=== PATIENT | female | born 1970 | race Caucasian/White ===

== ENCOUNTER 2017-06-30 00:13 | Observation (INO) | payer OTHER ==
[2017-06-30] VITALS (8 sets, daily range): BP systolic 132–165; BP diastolic 79–93; PULSE 20–111; RESP 16–20; TEMP 98.2–99.2; O2SAT 94–100
[~2017-06-30 00:13] MED LIST: CEPH-460 PO; METO25TA3 PO; OMEP10CA PO; SERT25TA83 PO; [UNRECOGNIZED DRUG - REMARK]; vitamins
[2017-06-30] MEDS ORDERED: SODIUM CHLOR 0.9% 1000 ML INJ 1,000 ML IV SCH (03:22)
[2017-06-30] MEDS ORDERED: SODIUM CHLORIDE 0.9% FLUSH 10 ML FLUSH IV FLUSH PRN (03:30)
[2017-06-30] MEDS ORDERED: NALOXONE HCL 0.4 MG/ML AMP IV PUSH PRN (03:30)
[2017-06-30] MEDS: SODIUM CHLORIDE 0.9% FLUSH 10 ML FLUSH IV FLUSH SCH ×2 (08:23→23:24)
--- NOTE | 2017-06-30 08:48 | HHI.HP ---
HPI Service [facility] Primary Care Physician Unknown Admission Diagnosis Diagnoses: (1) Hyponatremia Diagnosis: Principal (2) Generalized weakness Diagnosis: Principal (3) Elevated liver enzymes Diagnosis: Principal (4) Thrombocytopenia Diagnosis: Principal Chief Complaint: Profound weakness Travel History International Travel<30 Days: No Contact w/Intl Traveler <30 Da: No History of Present Illness 47-year-old female with known history of hypertension, depression who presented to the hospital because of profound weakness. Patient states that 2 weeks ago she got weak and she fell in the kitchen lacerating her lip. She went to the ER at that time and was given antibiotic in which she had allergic reaction to. She was subsequently started on steroids. However when she went home she still has severe weakness in which she pretty much stayed in bed the whole time. Every time she went to get up she felt nauseous. Because she did not get any better her took her to the ER for evaluation. Workup was done and found to have hyponatremia and recommended admission to the hospital for further evaluation and management. Upon further questioning it does appears the patient does have significant p.o. fluid intake with at least 6 bottles of water daily. 2 glasses of crystallite drinks. As well as she does drink alcohol on a regular basis she states that she drinks wine every other day and then on the weekend she does have several alcoholic beverages. Other evaluation in the emergency department did indicate elevated liver enzymes in which patient states that her primary doctor has been following her elevated liver enzymes. The last time they were checked for a couple months ago. Patient denies any abdominal pain, nausea, vomiting, headache, diarrhea. Review of Systems Gastrointestinal: COMPLAINS OF: Nausea Neurologic: COMPLAINS OF: Abnormal gait, Poor Balance Except as stated in HPI: all other systems reviewed are Neg Past Family Social History Past Medical History Hypertension Depression Past Surgical History Gastric bypass surgery Right knee surgery Tonsillectomy Reported Medications Reported Meds & Active Scripts Active Keflex (Cephalexin) 500 Mg Cap 500 Mg PO Q8H Reported [vitamins] [limprozol for BP] Omeprazole 10 Mg Cap 0 PO DAILY Sertraline (Sertraline HCl) 25 Mg Tab 0 PO DAILY Metoprolol Tartrate 25 Mg Tab 0 PO DAILY Allergies: Coded Allergies: amoxicillin (Verified Allergy, Severe, hives, 06/29/17) Family History We did a significant for mother at age 67 from heart disease. Patient states that breast cancer runs in her father's side of the family. Social History Patient admits to drinking and couple glasses of wine every other day and then on weekends drinking several alcoholic beverages. She denies any tobacco or illicit drug use Physical Exam Vital Signs Vital Signs Date Time Temp Pulse Resp B/P (MAP) Pulse Ox O2 Delivery O2 Flow Rate FiO2 06/30/17 04:05 98.4 84 16 138/83 (101) 96 06/30/17 03:25 83 Physical Exam GENERAL: Well-developed, well-nourished, in no acute distress. alert and orientated HEENT: Head is normocephalic without any lesions or masses noted. Facial features are symmetric. Eyes: Pupils equal round reactive to light. Extraocular muscles are intact. Conjunctivae were clear. Oropharyngeal: Pharynx without any erythema edema. Tongue is midline without deviation. Buccal mucosa is moist without any masses or lesions NECK: Supple without any masses. Trachea midline no deviation. No JVD, no bruits are appreciated CARDIAC: Regular rhythm, regular rate. S1/S2 are heard. No murmurs gallops or rubs. LUNGS: Clear to auscultation bilaterally. No wheeze, rhonchi or rales. No use of accessory muscles on inspiration or expiration. ABDOMEN: Soft, nontender. Nondistended. Bowel sounds heard in all 4 quadrants. No organomegaly or masses. Negative rebound, negative guarding EXTREMITIES: No edema, pulses are equal bilaterally. No cyanosis or clubbing NEUROLOGY: Mood and affect appear appropriate. Cranial nerves II through XII grossly intact. Muscle strength 5/5 in upper and lower extremities bilaterally. Deep tendon reflexes are 2+ in upper and lower extremities bilaterally. 1+ extremity tremors Laboratory Laboratory Tests Test 06/30/17 07:07 Sodium Level 122 Result Diagram: 06/30/17 0707 Caprini VTE Risk Assessment Caprini VTE Risk Assessment: No/Low Risk (score <= 1) Caprini Risk Assessment Model Point Value = 1 Point Value = 2 Point Value = 3 Point Value = 5 Age 41-60 Minor surgery BMI > 25 kg/m2 Swollen legs Varicose veins or History of unexplained or recurrent spontaneous Oral contraceptives or hormone replacement Sepsis (< 1 month) Serious lung disease, including pneumonia (< 1 month) Abnormal pulmonary function Acute myocardial infarction Congestive heart failure (< 1 month) History of inflammatory bowel disease Medical patient at bed rest Age 61-74 Arthroscopic surgery Major open surgery (> 45 min) Laparoscopic surgery (> 45 min) Malignancy Confined to bed (> 72 hours) Immobilizing plaster cast Central venous access Age >= 75 History of VTE Family history of VTE Factor V Leiden Prothrombin [id number] Lupus anticoagulant Anticardiolipin antibodies Elevated serum homocysteine Heparin-induced thrombocytopenia Other congenital or acquired thrombophilia Stroke (< 1 month) Elective arthroplasty Hip, pelvis, or leg fracture Acute spinal cord injury (< 1 month) Prophylaxis Regimen Total Risk Factor Score Risk Level Prophylaxis Regimen 0-1 Low Early ambulation 2 Moderate Order ONE of the following: *Sequential Compression Device (SCD) *Heparin 5000 units SQ BID 3-4 Higher Order ONE of the following medications: *Heparin 5000 units SQ TID *Enoxaparin/Lovenox 40 mg SQ daily (WT < 150 kg, CrCl > 30 mL/min) *Enoxaparin/Lovenox 30 mg SQ daily (WT < 150 kg, CrCl > 10-29 mL/min) *Enoxaparin/Lovenox 30 mg SQ BID (WT < 150 kg, CrCl > 30 mL/min) AND/OR *Sequential Compression Device (SCD) 5 or more Highest Order ONE of the following medications: *Heparin 5000 units SQ TID (Preferred with Epidurals) *Enoxaparin/Lovenox 40 mg SQ daily (WT < 150 kg, CrCl > 30 mL/min) *Enoxaparin/Lovenox 30 mg SQ daily (WT < 150 kg, CrCl > 10-29 mL/min) *Enoxaparin/Lovenox 30 mg SQ BID (WT < 150 kg, CrCl > 30 mL/min) AND *Sequential Compression Device (SCD) Assessment and Plan Assessment and Plan Hyponatremia Could be secondary to primary polydipsia, alcohol use Will obtain osmolality studies, urine sodium for further evaluation Obtain cortisol level and TSH CT of the brain does not indicate any acute abnormality or mass Recent chest x-ray does not indicate any mass Continue fluid replacement at this time Start fluid restriction 1500 mL daily Profound weakness Likely secondary to above Consult physical therapy for evaluation Elevated liver enzymes Patient states that she is being followed in outpatient setting for the elevated liver enzymes Will follow-up labs tomorrow Thrombocytopenia Unknown etiology, however in light of patient's elevated liver enzymes, alcohol use. Possible secondary to alcohol liver disease Monitor CBC Alcohol use Patient does have other findings indicative of chronic alcohol use with objective findings, physical findings of tremors, anxiety Ativan as needed for seizures Start thiamine and folic acid Xanax as needed for anxiety Abnormal urinalysis There is mildly elevated WBCs, however with significant epithelial cells, possible contamination Will hold antibiotics at this time Monitor urine culture DVT prevention, low risk Sequential compression devices Sebastián Fitch Jun 30, 2017 08:48
[2017-06-30] MEDS ORDERED: ALPRAZolam 0.25 MG TAB PO PRN (09:15)
[2017-06-30] MEDS ORDERED: DOCUSATE SODIUM 100 MG CAP PO PRN (09:15)
[2017-06-30] MEDS ORDERED: LORazepam 2 MG/ML VIAL IV PUSH PRN (09:15)
[2017-06-30] MEDS ORDERED: MAGNESIUM HYDROXIDE SUSP 30 ML CUP PO PRN (09:15)
[2017-06-30] MEDS ORDERED: ACETAMINOPHEN 325 MG TAB PO PRN (09:15)
[2017-06-30] MEDS ORDERED: ONDANSETRON HCL 4 MG/2 ML VIAL IV PUSH PRN (09:15)
[2017-06-30] MEDS: THIAMINE HCL 100 MG TAB PO SCH (09:59)
[2017-06-30] MEDS: FOLIC ACID 1 MG TAB PO SCH (09:59)
[2017-06-30 12:27] LABS: SODIUM,RANDOM URINE 31 MEQ/L
[2017-06-30 13:16] LABS: CORTISOL 15.5 MCG/DL
[2017-06-30 13:26] LABS: OSMOLALITY,URINE 188 MOSM/KG (300-1300)
[2017-06-30] MEDS: guaiFENesin/DEXTROMETHORPHAN 200 MG/20 MG/10 ML CUP PO PRN ×2 (17:13→23:24)
[2017-06-30] MEDS ORDERED: TEMAZEPAM 15 MG CAP PO PRN (21:00)
[2017-07-01] VITALS: BP 157/99; PULSE 127; RESP 18; TEMP 98.1; O2SAT 99
[2017-07-01 04:00] VITALS: BP 137/94; PULSE 125; RESP 20; TEMP 98.8; O2SAT 98
[2017-07-01 07:14] LABS: AUTOMATED NEUTROPHIL # 4.3 TH/MM3 (1.8-7.7); BASOPHIL % 0.8 % (0.0-2.0); CHLORIDE 94 MEQ/L (98-107); EOSINOPHIL % 0.8 % (0.0-4.0); HEMATOCRIT 30.1 % (35.0-46.0); HEMOGLOBIN 10.4 GM/DL (11.6-15.3); LYMPH % 13.8 % (9.0-44.0); LYMPHOCYTE # 0.7 TH/MM3 (1.0-4.8); MEAN CORPUSCULAR HEMOGLOBIN 34.3 PG (27.0-34.0); MEAN CORPUSCULAR HGB CONC 34.7 % (32.0-36.0); MEAN PLATELET VOLUME 7.2 FL (7.0-11.0); MONO % 5.6 % (0.0-8.0); MONOCYTE # 0.3 TH/MM3 (0-0.9); PLATELET COUNT 107 TH/MM3 (150-450); RED BLOOD COUNT 3.04 MIL/MM3 (4.00-5.30); RED CELL DISTRIBUTION WIDTH 13.6 % (11.6-17.2); SODIUM (NA) 133 MEQ/L (136-145); WHITE BLOOD COUNT 5.3 TH/MM3 (4.0-11.0)
[2017-07-01 07:17] LABS: CALCIUM 8.5 MG/DL (8.5-10.1)
[2017-07-01 07:18] LABS: ALBUMIN 3.5 GM/DL (3.4-5.0); BICARBONATE 28.7 MEQ/L (21.0-32.0); BLOOD UREA NITROGEN 7 MG/DL (7-18); GLUCOSE,RANDOM 125 MG/DL (74-106)
[2017-07-01 07:21] LABS: ALT (GPT) 76 U/L (10-53); AST (GOT) 206 U/L (15-37); CREATININE 0.44 MG/DL (0.50-1.00); GLOMERULAR FILTRATION RATE 153 ML/MIN (>89)
[2017-07-01 07:22] LABS: TOTAL BILIRUBIN ADULT 1.4 MG/DL (0.2-1.0)
[2017-07-01 07:23] LABS: TOTAL PROTEIN 7.1 GM/DL (6.4-8.2)
[2017-07-01 07:24] LABS: ALKALINE PHOSPHATASE 100 U/L (45-117)
[2017-07-01 08:00] VITALS: BP 164/76; PULSE 108; RESP 18; TEMP 97.9; O2SAT 99
[2017-07-01] MEDS ORDERED: DEXT10SY2 PO (08:18)
--- NOTE | 2017-07-01 08:19 | HHI.DCPOC ---
Discharge Care Plan Diagnosis: (1) Generalized weakness (2) Elevated liver enzymes (3) Hyponatremia Goals to Promote Your Health * To prevent worsening of your condition and complications * To maintain your health at the optimal level Directions to Meet Your Goals Take your medications as prescribed Follow your dietary instruction Follow activity as directed Keep your appointments as scheduled Take your immunizations and boosters as scheduled If your symptoms worsen call your PCP, if no PCP go to Urgent Care Center or Emergency Room Smoking is Dangerous to Your Health. Avoid second hand smoke Call the 24-hour hour crisis hotline for domestic abuse at Sebastián Fitch Jul 01, 2017 08:19
--- NOTE | 2017-07-01 08:25 | HHI.DS ---
Discharge Summary Admission Date Jun 30, 2017 at 03:01 Discharge Date: Jul 01, 2017 Admitting Diagnosis (1) Hyponatremia ICD Code: E87.1 - Hypo-osmolality and hyponatremia Diagnosis: Principal (2) Generalized weakness ICD Code: R53.1 - Weakness Diagnosis: Principal (3) Elevated liver enzymes ICD Code: R74.8 - Abnormal levels of other serum enzymes Diagnosis: Principal (4) Thrombocytopenia ICD Code: D69.6 - Thrombocytopenia, unspecified Diagnosis: Principal Procedures None Brief History - From Admission 47-year-old female with known history of hypertension, depression who presented to the hospital because of profound weakness. Patient states that 2 weeks ago she got weak and she fell in the kitchen lacerating her lip. She went to the ER at that time and was given antibiotic in which she had allergic reaction to. She was subsequently started on steroids. However when she went home she still has severe weakness in which she pretty much stayed in bed the whole time. Every time she went to get up she felt nauseous. Because she did not get any better her took her to the ER for evaluation. Workup was done and found to have hyponatremia and recommended admission to the hospital for further evaluation and management. Upon further questioning it does appears the patient does have significant p.o. fluid intake with at least 6 bottles of water daily. 2 glasses of crystallite drinks. As well as she does drink alcohol on a regular basis she states that she drinks wine every other day and then on the weekend she does have several alcoholic beverages. Other evaluation in the emergency department did indicate elevated liver enzymes in which patient states that her primary doctor has been following her elevated liver enzymes. The last time they were checked for a couple months ago. Patient denies any abdominal pain, nausea, vomiting, headache, diarrhea. CBC/BMP: 07/01/17 0641 07/01/17 0641 Significant Findings Laboratory Tests Test 06/30/17 07:07 06/30/17 09:55 06/30/17 12:05 06/30/17 18:15 Sodium Level 122 MEQ/L (136-145) 125 MEQ/L (136-145) 127 MEQ/L (136-145) Serum Osmolality 262 MOSM/KG (275-295) Urine Osmolality 188 MOSM/KG (300-1300) Test 07/01/17 00:05 07/01/17 06:41 Sodium Level 129 MEQ/L (136-145) 133 MEQ/L (136-145) Red Blood Count 3.04 MIL/MM3 (4.00-5.30) Hemoglobin 10.4 GM/DL (11.6-15.3) Hematocrit 30.1 % (35.0-46.0) Mean Corpuscular Hemoglobin 34.3 PG (27.0-34.0) Platelet Count 107 TH/MM3 (150-450) Neutrophils (%) (Auto) 79.0 % (16.0-70.0) Lymphocytes # (Auto) 0.7 TH/MM3 (1.0-4.8) Creatinine 0.44 MG/DL (0.50-1.00) Random Glucose 125 MG/DL (74-106) Aspartate Amino Transf (AST/SGOT) 206 U/L (15-37) Alanine Aminotransferase (ALT/SGPT) 76 U/L (10-53) Total Bilirubin 1.4 MG/DL (0.2-1.0) Chloride Level 94 MEQ/L (98-107) PE at Discharge GENERAL: Well-developed, well-nourished, in no acute distress. alert and orientated HEENT: Head is normocephalic without any lesions or masses noted. Facial features are symmetric. Eyes: Extraocular muscles are intact. Conjunctivae were clear. NECK: Supple without any masses. Trachea midline no deviation. No JVD, CARDIAC: Regular rhythm, regular rate. S1/S2 are heard. No murmurs gallops or rubs. LUNGS: Clear to auscultation bilaterally. No wheeze, rhonchi or rales. No use of accessory muscles on inspiration or expiration. ABDOMEN: Soft, nontender. Nondistended. Bowel sounds heard in all 4 quadrants. No organomegaly or masses. Negative rebound, negative guarding EXTREMITIES: No edema, pulses are equal bilaterally. No cyanosis or clubbing NEUROLOGY: Mood and affect appear appropriate. Cranial nerves II through XII grossly intact. Moving all extremities, patient with mild laryngitis Hospital Course 47-year-old female who originally presented to the hospital because of profound weakness. Patient workup to emergency department found to have significant hyponatremia. Because of that reason the patient was admitted to the hospital for further evaluation and management. Patient was initially started on IV fluids. Workup was done which did indicate a low serum and urine osmolality with an elevated urine sodium. Patient does openly admit that she drinks at least 6 bottles of water daily with 2 crystallite drinks daily as well as likely daily alcohol consumption. Patient was placed on fluid restriction with significant improvement of her sodium level. Patient was counseled extensively on fluid restriction for management and outpatient setting. Patient's strength did improve. Physical therapy evaluated the patient and indicated that he was able to walk again could benefit from possible physical therapy versus walker if needed. This was discussed with the patient and at bedside. They do not want to undergo any physical therapy or walker at this time. Patient had multiple other concerns prior to discharge to include possible influenza infection. Patient has been having symptoms for at least 1 week now. Discussed with her that we will perform the flu test at her request, however it is too late for any treatment at this time. Did continue to reinforce symptomatic treatment upon discharge. He is also saying that her skin is burning in her lower extremities. No further that could be is related to multiple different etiologies, some of which could have been related to admitted, however there are other reasons that need to be worked up in the outpatient setting. They do understand the plan of following up with her primary medical doctor. Patient is doing well at this time. Her sodium level is stable at this time. We will plan discharge accordingly. Patient may return to work after she is cleared by her primary medical doctor Pt Condition on Discharge: Stable Discharge Disposition: Discharge Home Discharge Time: > 30 minutes Discharge Instructions DIET: Follow Instructions for: As Tolerated, No Restrictions Activities you can perform: Regular-No Restrictions Follow up Referrals: PCP Follow-up - 1 Week New Medications: Dextromethorphan-Guaifenesin (Dextromethorphan/Guaifene 10-100 mg/5Ml) 100 Mg- 10 Mg/5 Ml Syp 10 ML PO Q6H PRN for COUGH, #1 BOTTLE Continued Medications: Metoprolol Tartrate (Metoprolol Tartrate) 25 Mg Tab 0 PO DAILY, #30 TAB 0 Refills Omeprazole (Omeprazole) 10 Mg Cap 0 PO DAILY, #30 CAP 0 Refills Sertraline (Sertraline) 25 Mg Tab 0 PO DAILY, #30 TAB 0 Refills [limprozol for BP] () [vitamins] () Discontinued Medications: Cephalexin (Keflex) 500 Mg Cap 500 MG PO Q8H for Infection, #30 CAP 0 Refills Sebastián Fitch Jul 01, 2017 08:25
[2017-07-01] MEDS ORDERED: METOPROLOL SUCCINATE 25 MG EXTENDED RELEASE TAB PO SCH (09:00)
[2017-07-01] MEDS: FOLIC ACID 1 MG TAB PO SCH (09:55)
[2017-07-01] MEDS: THIAMINE HCL 100 MG TAB PO SCH (09:55)
[2017-07-01] MEDS: SODIUM CHLORIDE 0.9% FLUSH 10 ML FLUSH IV FLUSH SCH (09:56)
== END 2017-07-01 10:21 | disposition home or self-care (01) ==
LOC: PHEDDLT 02:51 → INTOOBSV 03:01 → PH3A 03:01
PROVIDERS: ADMIT Hospitalist; ATTEND Hospitalist
DX: E87.1 Hypo-osmolality and hyponatremia (principal); R74.8 Abnormal levels of other serum enzymes; D69.6 Thrombocytopenia, unspecified; R11.0 Nausea; R25.1 Tremor, unspecified; F41.9 Anxiety disorder, unspecified; R82.90 Unspecified abnormal findings in urine; I10 Essential (primary) hypertension; F32.9 Major depressive disorder, single episode, unspecified; Z98.84 Bariatric surgery status; Z79.899 Other long term (current) drug therapy
CPT/HCPCS: 70450; 71046; 80053; 80307; 81001; 82533; 83930; 83935; 84295; 84300; 84443; 85025; 87086; 87804; 96360; 97163; 99285; G0378; G8987; G8988; J7030